=== PATIENT | male | born 1930 | race Caucasian/White ===

== ENCOUNTER 2018-07-01 12:18 | Emergency (ER) | payer MEDICARE, BC ==
[~2018-07-01] VITALS: Ht 177.8 cm; Wt 86.4 kg
[2018-07-01 12:27] VITALS: TEMP 97.2
[2018-07-01 13:14] LABS: BASO % 0.2 % (0.0-2.0); EOS # 0.1 (0.0-0.7); EOS % 0.6 % (0-4.0); GRAN # 7.3 (1.4-6.5); GRAN % 80.3 % (42.2-75.2); HEMATOCRIT 37.2 % (42.0-52.0); HEMOGLOBIN 11.9 g/dl (13.5-18.0); LYMPH # 0.9 (1.2-3.4); LYMPH % 10.3 % (20.0-51.0); MEAN CELL VOLUME 101 fl (80.0-100.0); MEAN CORPUSCULAR HEMOGLOBIN 32 pg (27.0-31.0); MEAN CORPUSCULAR HGB CONC 32 g/dl (33.0-37.0); MEAN PLATELET VOLUME 9.6 fl (7.4-10.4); MONO # 0.7 (0.1-0.6); MONO % 7.8 % (1.7-9.3); PLATELET COUNT 148 K/mm3 (130-400); RED BLOOD COUNT 3.69 M/mm3 (4.20-5.60)
[2018-07-01 13:19] LABS: INR 1.1 (0.8-3.0); PROTHROMBIN TIME 12.3 SECONDS (9.7-12.8)
[2018-07-01 13:23] LABS: ALBUMIN 4.2 gm/dL (3.5-5.0); BILIRUBIN,TOTAL 0.5 mg/dL (0.0-1.0); CALCIUM 9.1 mg/dL (8.4-10.2); CREATININE, serum 1.31 (0.66-1.25); POTASSIUM 4.8 mmol/L (3.4-5.0); TOTAL PROTEIN 7.5 gm/dL (6.4-8.2)
[2018-07-01] MEDS ORDERED: CEPHALEXIN500 M1 PO (14:38)
[2018-07-01 14:47] VITALS: BP 130/66; PULSE 75
== END 2018-07-01 14:55 | disposition home or self-care (01) ==
LOC: COL.ER 12:18 → EDBD 12:19 → COL.ER 14:55
PROVIDERS: Family Medicine
DX: S02.2XXA Fracture of nasal bones, initial encounter for closed fracture (principal); S01.21XA Laceration without foreign body of nose, initial encounter; I25.10 Atherosclerotic heart disease of native coronary artery without angina pectoris; F31.9 Bipolar disorder, unspecified; W06.XXXA Fall from bed, initial encounter